=== PATIENT | male | born 1965 | race African-American/Black ===

== ENCOUNTER 2016-12-19 23:20 | Emergency (ER) | payer OTHER ==
[~2016-12-19] VITALS: Ht 188 cm; Wt 91.5 kg
[~2016-12-19 23:20] MED LIST: ESCITALOPRAM OX10 MG PO; PRAZOSIN HCL2 MG PO; QUETIAPINE FUM100 MG PO
[2016-12-19 23:54] LABS: HEMATOCRIT 39.1 % (38.0-50.0); MCH 30.9 PG (29.0-34.0); MCV 93.8 FL (86-99); PLATELET COUNT 148 K/uL (156-360); RBC DIS.WIDTH-CV 13.2 % (11.8-14.6); RBC DIS.WIDTH-SD 45.4 % (39-53); RED BLOOD COUNT 4.17 M/uL (4.00-5.50)
[2016-12-20 00:05] LABS: CHLORIDE 105 mEq/L (99-109); POTASSIUM 3.4 mEq/L (3.7-5.4); SODIUM 140 mEq/L (136-147)
[2016-12-20 00:06] LABS: GLUCOSE 95 mg/dL (70-99)
[2016-12-20 00:08] LABS: ANION GAP 16 MEQ/L (2-14)
[2016-12-20 00:10] LABS: GFR ESTIMATE (CALCULATED) > 59 mL/min/; SERUM ETHYL ALCOHOL 212 mg/dL
[2016-12-20 00:12] LABS: UREA NITROGEN (BUN) 16 mg/dL (9-23)
[2016-12-20 00:13] LABS: SALICYLATE < 5.0 MG/DL (15-30)
[2016-12-20 00:59] LABS: AMPHETAMINE NEGATIVE (500 ng/mL); BARBITURATES NEGATIVE (200 ng/mL); BENZODIAZEPINES NEGATIVE (150 ng/mL); COCAINE NEGATIVE (150 ng/mL); INTERNAL CONTROLS VALID? YES; METHADONE NEGATIVE (200 ng/mL); METHAMPHETAMINE NEGATIVE (500 ng/mL); OPIATES (MORPHINE) NEGATIVE (100 ng/mL); OXYCODONE NEGATIVE (100 ng/mL); PHENCYCLIDINE NEGATIVE (25 ng/mL); PROPOXYPHENE NEGATIVE (300 ng/mL); THC CANNABINOIDS NEGATIVE (50 ng/mL); TRICYCLIC ANTIDEPRESSANTS NEGATIVE (300 ng/mL)
[2016-12-20 01:58] LABS: TROP-I INTERPRETATION NEGATIVE; TROPONIN-I < 0.01 ng/mL (0.0-0.30)
[2016-12-20 05:05] VITALS: BP 138/88
== END 2016-12-20 05:06 | disposition home or self-care (01) ==
LOC: EME → EDBD 23:20 → EME 23:20
PROVIDERS: Emergency Medicine
DX: F19.10 Other psychoactive substance abuse, uncomplicated (principal); F10.129 Alcohol abuse with intoxication, unspecified; E87.6 Hypokalemia; Y90.7 Blood alcohol level of 200-239 mg/100 ml; F17.200 Nicotine dependence, unspecified, uncomplicated
CPT/HCPCS: 70450; 71010; 80048; 84484; 85027; 93005; 99281; 99285; G0480; J1630; J2250; J7030

== ENCOUNTER 2017-02-10 06:59 | Emergency (ER) | payer OTHER ==
[~2017-02-10] VITALS: Ht 193 cm; Wt 86.8 kg
[2017-02-10] MEDS ORDERED: MOTRIN800 MG PO (09:29)
[2017-02-10 10:26] VITALS: BP 119/76
== END 2017-02-10 10:29 | disposition home or self-care (01) ==
LOC: EME 06:59
DX: S63.502A Unspecified sprain of left wrist, initial encounter (principal); S60.212A Contusion of left wrist, initial encounter; M25.522 Pain in left elbow; Y04.0XXA Assault by unarmed brawl or fight, initial encounter; F17.200 Nicotine dependence, unspecified, uncomplicated
CPT/HCPCS: 73080; 99281; 99284